=== PATIENT | female | born 1980 | race African-American/Black ===

== ENCOUNTER 2016-05-14 23:53 | Emergency (ER) | payer MEDICAID ==
[2016-05-15 00:09] VITALS: BP 111/59
== END 2016-05-15 03:26 | disposition left against medical advice (07) ==
LOC: ER 23:53
DX: Z53.21 Procedure and treatment not carried out due to patient leaving prior to being seen by health care provider (principal)

== ENCOUNTER → 2016-05-21 | Outpatient (CLI) | payer SELFPAY ==
[2016-05-23 11:40] LABS: JO-1 ANTIBODY <0.2 AI (0.0-0.9)
== END ==
LOC: OD 13:59
PROVIDERS: ATTEND Internal Medicine
DX: R23.9 Unspecified skin changes (principal)
CPT/HCPCS: 36415; 85652; 86225; 86235

== ENCOUNTER → 2019-04-27 | Outpatient (CLI) | payer BC ==
[2019-04-27 14:40] LABS: ANION GAP 6 (5-19); BLOOD UREA NITROGEN 9 mg/dL (7-20); CALCIUM 8.6 mg/dL (8.4-10.2); CARBON DIOXIDE 26 mmol/L (22-30); CHLORIDE 107 mmol/L (98-107); GLUCOSE 92 mg/dL (75-110); POTASSIUM 4.8 mmol/L (3.6-5.0)
== END ==
LOC: OD 12:20
PROVIDERS: ATTEND Family Medicine
DX: I83.819 Varicose veins of unspecified lower extremity with pain (principal); M79.89 Other specified soft tissue disorders
CPT/HCPCS: 36415; 80048; 85379

== ENCOUNTER → 2019-04-27 | Outpatient (CLI) | payer BC ==
--- NOTE | 2019-04-27 15:29 | RADIOLOGY REPORT (SQ) ---
EXAM DESCRIPTION: VENOUS BILATERAL LOWER COMPLETED DATE/TIME: 04/27/2019 3:17 pm REASON FOR STUDY: BLE SWELLING R22.43 LOCALIZED SWELLING, MASS AND LUMP, LOWER LIMB, BILATE COMPARISON: None. TECHNIQUE: Dynamic and static arevalo scale and color images acquired of both lower extremity venous sy stems. Selected spectral images acquired with additional compression and augmentation maneuvers. Imag es stored on PACS. LIMITATIONS: None. FINDINGS: RIGHT LEG COMMON FEMORAL AND FEMORAL: Normal phasicity, compression and augmentation. No visualized echogenic m aterial on arevalo scale. No defects on color images. POPLITEAL: Normal compression and augmentation. No visualized echogenic material on arevalo scale. No de fects on color images. CALF VESSELS: Normal compression and augmentation. No visualized echogenic material on arevalo scale. No defects on color image. GSV AND SSV: Normal compression. No visualized echogenic material on arevalo scale. No defects on color images. ANY DEEP VENOUS INSUFFICIENCY: Not evaluated. ANY EVIDENCE OF POPLITEAL CYST: No. OTHER: No other significant finding. LEFT LEG COMMON FEMORAL AND FEMORAL: Normal phasicity, compression and augmentation. No visualized echogenic m aterial on arevalo scale. No defects on color images. POPLITEAL: Normal compression and augmentation. No visualized echogenic material on arevalo scale. No de fects on color images. CALF VESSELS: Normal compression and augmentation. No visualized echogenic material on arevalo scale. No defects on color images. GSV AND SSV: Normal compression. No visualized echogenic material on arevalo scale. No defects on color images. ANY DEEP VENOUS INSUFFICIENCY: Not evaluated. ANY EVIDENCE POPLITEAL CYST: No. OTHER: No other significant finding. IMPRESSION: NO EVIDENCE DVT OR SVT IN EITHER LEG. TECHNICAL DOCUMENTATION: JOB ID: [id number] 2010 [employer]- All Rights Reserved Reading location - IP/workstation name: [email or web address]
== END ==
LOC: RAD 13:59
PROVIDERS: ATTEND Family Medicine
DX: M79.89 Other specified soft tissue disorders (principal)
CPT/HCPCS: 93970